=== PATIENT | female | born 1980 | race Caucasian/White ===

== ENCOUNTER 2017-04-25 05:12 | Observation (INO) | payer BC ==
[~2017-04-25] VITALS: Ht 152.4 cm; Wt 96.1 kg
[~2017-04-25 05:12] MED LIST: HYDR-3580 PO; IBUP800T23 PO; MIRA3350 PO
[2017-04-25] MEDS ORDERED: METOPROLOL TARTRATE 25 MG TAB PO PRN (05:45)
[2017-04-25] MEDS ORDERED: POVIDONE IODINE 5% (ANTISEPSIS KIT) 4 APPLICATIONS EACH NARE PRN (05:45)
[2017-04-25] MEDS ORDERED: ceFAZolin 2 GM PREMIX 50 ML IV SCH (05:45)
[2017-04-25] MEDS ORDERED: SODIUM CHLORID 0.9% 500 ML IV PRN (05:45)
[2017-04-25] MEDS ORDERED: CHLORHEXIDINE GLUCONATE 4% SOLN 120 ML BTL TOPICAL SCH (05:45)
[2017-04-25] MEDS ORDERED: LACTATED RINGER'S 1000 ML IV PRN (05:45)
[2017-04-25] MEDS ORDERED: CHLORHEXIDINE GLUCONATE 2 % 1 PACK (2 CLOTHS) TOPICAL PRN (05:45)
[2017-04-25] MEDS ORDERED: VANCOMYCIN 1000 MG/NS 250 ML (for <70 kg) IV SCH ×2 (05:45)
[2017-04-25] MEDS ORDERED: INSULIN HUMAN REGULAR 1,000 UNITS/10 ML VIAL SQ PRN (05:45)
[2017-04-25] MEDS ORDERED: GENTAMICIN SULFATE 80 MG/2 ML VIAL ONE (07:10)
--- NOTE | 2017-04-25 07:51 | PD.OP ---
cc: Juan David Aguilera MD Operative Report Date of Surgery: Apr 25, 2017 Preoperative Diagnosis: Displaced left proximal humerus fracture Postoperative Diagnosis: Procedure: Open reduction internal fixation left proximal humerus fracture Anesthesia: Gen. Surgeon: Juan David Aguilera Heel Compressor(s): CLAYTON Dyer PA-C The surgical procedure was assisted by my physician hr assistant. My P.A. presence was necessary throughout this case for the manipulation and positioning of the surgical extremity. My P.A. was assisting me throughout the duration of this procedure. The skill set of a physician hr assistant was medically necessary to complete this procedure. During the surgical case the cardiovascular surgical tech was working at the back table and the physician hr assistant was directly assisting me. Operation and Findings: Patient was seen and evaluated preoperatively. Patient was found to have a displaced left proximal humerus fracture. The risks and benefits of surgical and nonsurgical options were discussed in detail and informed consent was obtained for surgery. Patient was brought to the operating room and placed on or table. IV sedation and GETA were administered by anesthesiologist. Antibiotics were given prior to incision. Operative arm and shoulder were prepped with alcohol followed by Hibiclens and draped usual sterile fashion. Timeout procedure was performed. Procedure began with a 5 inch incision over the anterior shoulder. Cephalic vein was identified. A deltopectoral approach was utilized. The fracture was now visualized. Soft tissue was retracted. A #5 FiberWire suture was placed into the rotator rotator cuff and greater tuberosity. Attention was now turned to reduction. Gentle traction was applied. The humeral shaft was reduced to the humeral head. Fracture was manipulated to achieve excellent reduction. Multiplanar fluoroscopy confirmed well aligned fracture. Multiple K wires were used to hold provisional fixation. A Synthes proximal humerus plate was selected. Plate was provisionally held in place K wires. 3.5 cortical screws were used to compress plate to bone. Fluoroscopy confirmed appropriate plate placement and fracture reduction. Multiple locking screws were now placed in the humeral head. Screws were predrilled and premeasured for appropriate length. Care was taken not to penetrate the articular surface. Additional screws were placed in the humeral shaft. The FiberWire suture was passed through the holes of the plate and sutured to the plate for additional stability. Final fluoroscopy revealed well aligned fracture with well-placed hardware. Wound was thoroughly irrigated. Fascia was closed with #1 Vicryl, subcutaneous tissues closed with 3-0 Vicryl, and skin was closed with ag. Sterile dressings were applied. Patient was placed into a sling. Patient was awakened and transferred to recovery in stable condition. Needle and sponge counts were correct. Juan David Aguilera MD Apr 25, 2017 07:51
[2017-04-25] MEDS ORDERED: HYDR-3366 PO (07:53)
[2017-04-25] MEDS ORDERED: diphenhydrAMINE HCL 25 MG CAP PO PRN (08:00)
[2017-04-25] MEDS ORDERED: SODIUM CHLORIDE 0.9% FLUSH 5 ML FLUSH IVF PRN (08:00)
[2017-04-25] MEDS ORDERED: ONDANSETRON HCL 4 MG/2 ML VIAL IVP PRN (08:00)
[2017-04-25] MEDS: SODIUM CHLORIDE 0.9% FLUSH 5 ML FLUSH IVF SCH ×2 (09:00→20:09)
[2017-04-25] MEDS ORDERED: DO NOT ADM ANY ANTICOAGULANT DRUGS PRN (09:36)
[2017-04-25] MEDS ORDERED: *morphine SULFATE 8 MG/ML PERIprocedure ONLY ONE ×3 (09:52→10:22)
[2017-04-25] MEDS: DOCUSATE SODIUM 50 MG/SENNA 8.6 MG TAB PO SCH ×2 (10:00→20:09)
[2017-04-25] MEDS: CALCIUM/VITAMIN D 250 MG/125 U TAB PO SCH ×3 (10:00→16:39)
[2017-04-25] MEDS: CHOLECALCIFEROL (VIT D3) 1000 UNIT TAB PO SCH (10:02)
--- NOTE | 2017-04-25 10:29 | RADRPT ---
EXAM DATE/TIME: 04/25/2017 09:06 [place] COMPARISON: No previous studies available for comparison. INDICATIONS : Left proximal humerus fracture repair. OR. MEDICAL HISTORY : None. SURGICAL HISTORY : None. ENCOUNTER: Initial ACUITY: 1 day PAIN SCORE: Non-responsive. LOCATION: Left proximal humerus FINDINGS: Examination reveals cortical side plate and multiple screw fixation of a proximal left humeral neck f racture with good reduction of fragments and buddhist of anatomic alignment. The hardware appears intact. CONCLUSION: Satisfactory operative appearance Lars Mondragon MD on April 25, 2017 at 10:27 Board Certified Radiologist. This report was verified electronically.
[2017-04-25] MEDS ORDERED: *HYDROmorphone PF 1 MG VIAL PERIprocedural Use ONLY ONE (10:46)
[2017-04-25] MEDS ORDERED: ERGOCALCIFEROL (VIT D2) 50,000 UNIT CAP PO SCH (11:00)
[2017-04-25] MEDS ORDERED: ROCURONIUM INJ 50 MG/5 ML SYRINGE IV PUSH ONE (12:00)
[2017-04-25] MEDS ORDERED: NEOSTIGMINE 3 MG/3 ML SYR IV ONE (12:00)
[2017-04-25] MEDS ORDERED: MORPHINE SULFATE 4 MG/ML INJ IV ONE (12:00)
[2017-04-25] MEDS ORDERED: MIDAZOLAM HCL 2 MG/2 ML VIAL IV ONE (12:00)
[2017-04-25] MEDS ORDERED: PROPOFOL 200 MG/20 ML AMP IV ONE (12:00)
[2017-04-25] MEDS ORDERED: ESMOLOL HCL 100 MG/10 ML VIAL IV ONE (12:00)
[2017-04-25] MEDS ORDERED: GLYCOPYRROLATE 1 MG/5 ML SYRINGE IV PUSH ONE (12:00)
[2017-04-25] MEDS ORDERED: LIDOCAINE HCL 1% PF 5 ML AMPULE OTHER ONE (12:00)
[2017-04-25] MEDS ORDERED: LACTATED RINGER'S 1000 ML INJ 1,000 ML IV ONE (12:00)
[2017-04-25] MEDS ORDERED: LABETALOL HCL 100 MG/20 ML VIAL IV ONE (12:00)
[2017-04-25] MEDS ORDERED: ONDANSETRON HCL 4 MG/2 ML VIAL IV PUSH ONE (12:00)
[2017-04-25] MEDS ORDERED: DEXAMETHASONE SOD PHOS 4 MG/ML VIAL IV ONE (12:00)
[2017-04-25] MEDS: ACETAMINOPHEN/HYDROcodone 325 MG/10 MG TAB PO PRN ×3 (13:28→20:09)
[2017-04-25 16:00] VITALS: BP 115/69; PULSE 71; RESP 18; TEMP 97.6; O2SAT 95
[2017-04-25] MEDS: ceFAZolin 2 GM PREMIX 50 ML IV SCH (16:41)
[2017-04-25 20:16] VITALS: BP 146/76; PULSE 60; RESP 17; TEMP 98.3; O2SAT 100
[2017-04-26] MEDS: ACETAMINOPHEN/HYDROcodone 325 MG/10 MG TAB PO PRN ×4 (00:04→11:29)
[2017-04-26] MEDS: ceFAZolin 2 GM PREMIX 50 ML IV SCH ×2 (00:04→09:55)
[2017-04-26 00:10] VITALS: BP 146/81; PULSE 75; RESP 18; TEMP 98.1; O2SAT 98
[2017-04-26] MEDS: MORPHINE SULFATE 4 MG/ML INJ IV PUSH PRN ×2 (01:12→04:32)
[2017-04-26 04:12] VITALS: BP 148/93; PULSE 79; RESP 18; TEMP 97.7; O2SAT 99
--- NOTE | 2017-04-26 06:45 | PD.ORT.PN ---
Subjective Subjective Remarks POD 1 s/p ORIF left proximal humerus doing well. reports pain but controlled. out of bed yesterday Objective Vitals Vital Signs Date Time Temp Pulse Resp B/P (MAP) Pulse Ox O2 Delivery O2 Flow Rate FiO2 04/26/17 04:12 97.7 79 18 148/93 (111) 99 04/26/17 00:10 98.1 75 18 146/81 (102) 98 04/25/17 20:16 98.3 60 17 146/76 (99) 100 04/25/17 16:00 97.6 71 18 115/69 (84) 95 04/25/17 14:28 18 04/25/17 12:15 57 16 125/66 (85) 98 Nasal Cannula 2 04/25/17 11:30 62 16 108/57 (74) 95 Nasal Cannula 1 04/25/17 11:15 82 16 109/56 (73) 96 Nasal Cannula 2 04/25/17 11:00 74 16 116/56 (76) 97 Nasal Cannula 2 04/25/17 10:45 66 16 140/66 (90) 96 Nasal Cannula 3 04/25/17 10:30 61 16 146/67 (93) 95 Nasal Cannula 3 04/25/17 10:15 62 16 159/77 (104) 96 Nasal Cannula 3 04/25/17 10:00 70 16 153/92 (112) 98 Nasal Cannula 3 04/25/17 09:45 68 16 150/66 (94) 96 Nasal Cannula 4 04/25/17 09:39 97.8 82 16 148/89 (108) 94 Nasal Cannula 4 I/O 04/25/17 04/25/17 04/25/17 04/26/17 04/26/17 04/26/17 07:00 15:00 23:00 07:00 15:00 23:00 Intake Total 1370 ml 290 ml Output Total 100 ml Balance 1270 ml 290 ml Intake Oral 120 ml 240 ml IV Total 250 ml 50 ml Other 1000 ml Output Urine Total 0 ml Estimated Blood Loss 100 ml # Voids 1 1 # Bowel Movements 0 Objective Remarks LUE: dressings clean and dry. intact. +sling. NVI Assessment & Plan Assessment and Plan 1) Left Proximal Humerus Fx s/p ORIF - POD 1 -NWB -daily dressing change. convert to primapore before DC -pendulums -CM for HHC -DC home today with HHC -f/u with Erlin or SHANNEN in 2 weeks Jose Staples Apr 26, 2017 06:45
--- NOTE | 2017-04-26 06:47 | HHI.FF ---
Face to Face Verification Diagnosis: (1) Closed fracture of left proximal humerus Occupational Therapy Left UE Weight Bearing: Non WB Left UE Range of Motion: Pendular Nursing Dressing Changes: Daily dressing change, Xeroform, Coverderm/Primapore I have seen patient Yaquelin Hernandez on 04/26/17. My clinical findings support the need for the requested home health care services because: Ltd mobility - disease progression I certify that my clinical findings support that this patient is homebound because: Post-op weakness Jose Staples Apr 26, 2017 06:47
--- NOTE | 2017-04-26 06:49 | HHI.DS ---
Discharge Summary Admission Date Apr 25, 2017 at 07:50 Discharge Date: Apr 26, 2017 Admitting Diagnosis Left Proximal Humerus Fx Diagnosis: (1) Closed fracture of left proximal humerus Diagnosis: Principal ICD Codes: S42.202A - Unspecified fracture of upper end of left humerus, initial encounter for closed fracture Status: Acute Procedures ORIF left proximal humerus PE at Discharge LUE: dressings clean and dry. intact. +sling. NVI Hospital Course Wayne was admitted from outpatient basis for an open reduction internal fixation of her left proximal humerus. She tolerated the procedure well. She was admitted 6 north. She was out of bed on same day of surgery and working on pendulum exercises with physical therapy. On postoperative day 1, her pain was controlled and she was hemodynamically stable and fit for discharge home with home health care. She'll be discharged home today with home health care. She will remain nonweightbearing. She'll maintain her sling at all times except for therapy. She'll work on pendulum exercises 2-3 times a day. She will have daily dressing changes with Xeroform and a primapore dressing. She will follow up in the office of Dr. Aguilera or his PA in 2 weeks. Pt Condition on Discharge: Good Discharge Disposition: Disch w/ Home Health Serv Discharge Instructions Diet Instructions: As Tolerated, No Restrictions Activities You Can Perform: Non Weight Bearing Follow up Referrals: Orthopedics - 2 Weeks @ [facility] with Juan David Aguilera MD New Medications: Hydrocodone-Acetaminophen ([place]) 10-325 Mg Tab 1 TAB PO Q3HR PRN for PAIN, #60 TAB 0 Refills Jose Staples Apr 26, 2017 06:49
[2017-04-26 08:00] VITALS: BP 144/78; PULSE 75; RESP 18; TEMP 97.5; O2SAT 97
[2017-04-26] MEDS: SODIUM CHLORIDE 0.9% FLUSH 5 ML FLUSH IVF SCH (09:55)
[2017-04-26] MEDS: CHOLECALCIFEROL (VIT D3) 1000 UNIT TAB PO SCH (09:55)
[2017-04-26] MEDS: DOCUSATE SODIUM 50 MG/SENNA 8.6 MG TAB PO SCH (09:56)
[2017-04-26] MEDS: CALCIUM/VITAMIN D 250 MG/125 U TAB PO SCH ×2 (09:56→14:00)
[2017-04-26 11:41] VITALS: BP 153/80; PULSE 77; RESP 18; TEMP 97.1; O2SAT 100
== END 2017-04-26 14:31 | disposition home or self-care (01) ==
LOC: HSDC 05:12 → HSDI 07:50 → N06B 13:01
PROVIDERS: ADMIT Orthopaedic Surgery Orthopaedic Trauma; ATTEND Orthopaedic Surgery Orthopaedic Trauma
DX: S42.202A Unspecified fracture of upper end of left humerus, initial encounter for closed fracture (principal); W01.0XXA Fall on same level from slipping, tripping and stumbling without subsequent striking against object, initial encounter; Y93.9 Activity, unspecified
CPT/HCPCS: 01630; 23615; 73060; 76000; 97110; 97166; 97535; C1713; G0378; G8987; G8988; J0690; J1100; J1170; J1580; J2250; J2270; J2405; J2710; J3010; J3370; J7050; J7120